=== PATIENT | female | born 1995 | race African-American/Black ===

== ENCOUNTER 2019-10-07 17:49 | Emergency (ER) | payer OTHER, SELFPAY ==
[2019-10-07 18:10] VITALS: BP 100/61; PULSE 97; RESP 16; TEMP 37.2; O2SAT 100
--- NOTE | 2019-10-07 18:11 | ED.URI ---
HPI - URI/Sore Throat General Chief Complaint: Upper Respiratory Infection Stated Complaint: sore throat Time Seen by Provider: 10/07/19 18:13 Source: patient and RN notes reviewed Mode of arrival: ambulatory Limitations: no limitations History of Present Illness HPI Narrative: This is a 24 years old female presents to the office for an evaluation of sore throat for three to four days. She also noticed white spots in the back of her throat. Associated with feeling malaise, nausea and decrease appetite. Denies history of mono. She took zofran for her nausea and ibuprofen/throat spray for her throat pain. Related Data Home Medications Medication Instructions Recorded Confirmed Naprosyn 10/07/19 Prozac 10/07/19 Seroquel 10/07/19 Wellbutrin SR 10/07/19 cyclobenzaprine 10/07/19 Allergies Allergy/AdvReac Type Severity Reaction Status Date / Time Penicillins Allergy Hives Verified 10/07/19 18:13 Review of Systems Review of Systems: Narrative: CONSTITUTIONAL: Denies fever. Reports feeling warmer/hot ENT: Reports sore throat CARDIOVASCULAR: Denies chest pain RESPIRATORY: Denies dyspnea, wheezing, cough GASTROINTESTINAL: Denies vomiting, diarrhea. Reports decrease appetite and nausea. SKIN: Denies rash MUSCULOSKELETAL: Denies acute back pain NEUROLOGIC: Denies lightheaded All other systems reviewed are negative, except as documented in HPI. [facility] Past Medical History Medical History (Updated 10/07/19 @ 18:25 by MARLEN Centeno) Anxiety and depression Chronic back pain Social History Social History (Updated 10/07/19 @ 18:13 by MARLEN Centeno) Smoking status: Never smoker Gender identity (if verbalized by the patient): Female Comments At time of signature, I agree with nursing past medical, surgical, social and family history. There is no relevant family history pertinent to the presenting complaint. Exam Narrative: Exam Narrative: GENERAL: This is a well-nourished, well-developed patient, ill apparent but not in no apparent distress. EYES: Sclera clear/white. Vision is grossly intact. EARS: External ears normal, auditory canals clear and without drainage, TMs normal without perforation. Hearing grossly intact. NOSE: External nose normal with no obvious nasal discharge, nares without redness, no rhinorrhea. THROAT: Mucous membranes moist, posterior pharynx erythema, edematous with exduative. Uvula midline. NECK: Neck supple, non-tender without lymphadenopathy, masses or thyromegaly. CARDIOVASCULAR: Regular rate and rhythm without murmurs, gallops, or rubs. RESPIRATORY: Clear to auscultation. Breath sounds equal bilaterally. No wheezes, rales, or rhonchi. GASTROINTESTINAL: Abdomen soft, non-tender, nondistended. Bowel sounds are active. No hepato-splenomegaly, or palpable masses. No guarding. SKIN: warm, intact with no suspicious lesions or rash, good texture and turgor. NEURO: awake, alert, and oriented to person, place and time. There were no obvious focal neurologic abnormalities. Steady gait [place] Coma Scale Eye Opening: Spontaneous 4 [place] Coma Scale Motor: Obeys Commands 6 [place] Coma Scale Verbal: Oriented 5 Course Vital Signs Vital signs: Vital Signs Temperature 99.0 F 10/07/19 18:10 Pulse Rate 97 10/07/19 18:10 Respiratory Rate 16 10/07/19 18:10 Blood Pressure 100/61 10/07/19 18:10 Pulse Oximetry 100 10/07/19 18:10 Temperature 99.0 F 10/07/19 18:10 Pulse Rate 97 10/07/19 18:10 Respiratory Rate 16 10/07/19 18:10 Blood Pressure 100/61 10/07/19 18:10 Pulse Oximetry 100 10/07/19 18:10 MDM - URI/Sore Throat MDM Narrative Medical decision making narrative: Discharge instructions reviewed with patient, as well as provided in writing per nursing staff. The instructions also include specific and strict return/GO TO THE ER as well as f/u information. All questions have been answered, and the patient deny any further questions
== END 2019-10-07 18:38 | disposition home or self-care (01) ==
PROVIDERS: Emergency Provider Nurse Practitioner
DX: J03.90 Acute tonsillitis, unspecified (principal); F41.9 Anxiety disorder, unspecified; F32.9 Major depressive disorder, single episode, unspecified
CPT/HCPCS: 86308; 87081; 87880; 99203; G0463